=== PATIENT | male | born 1965 | race Two or more races ===

== ENCOUNTER 2021-01-09 09:51 | Day surgery (SDC) | payer OTHER | END 2021-01-09 14:05 | disposition home or self-care (01) | LOC: AMB-ENDOS 09:51 | PROVIDERS: ATTEND Surgery | DX: K57.32 Diverticulitis of large intestine without perforation or abscess without bleeding (principal); Z20.822 Contact with and (suspected) exposure to COVID-19 ==

== ENCOUNTER 2021-03-28 10:45 | Inpatient (IN) | payer OTHER ==
[~2021-03-28] VITALS: Ht 175.3 cm; Wt 63.0 kg
[2021-03-28] MEDS ORDERED: FOLIC ACID PO (13:03)
[2021-03-28] MEDS ORDERED: ATIVAN2 M1 PO (13:03)
[2021-03-28] MEDS ORDERED: PAXIL40 MG PO (13:03)
[2021-03-28] MEDS ORDERED: PREDNISONE PO (13:04)
[2021-04-04] MEDS ORDERED: FOLIC ACID1 MG (13:27)
[2021-04-04] MEDS ORDERED: MIRTAZAPINE45 MG (13:27)
[2021-04-04] MEDS ORDERED: METHOTREXA25 MG/1 M5 (13:27)
[2021-04-04] MEDS ORDERED: OLANZAPINE10 MG (13:28)
[2021-04-04] MEDS ORDERED: RESTORIL30 MG (13:28)
[2021-04-04] MEDS ORDERED: PREDNISONE 5MG PO (13:33)
[2021-04-07] MEDS ORDERED: PRILOSEC OTC20 MG PO (09:09)
[2021-04-07] MEDS ORDERED: PERCOCET 5-3251 EACH PO (09:09)
== END 2021-04-07 11:06 | disposition home or self-care (01) | DRG 334 ==
LOC: SURH 04-04 05:46 → O/R 04-04 05:46 → SURH 04-04 07:00
PROVIDERS: ADMIT Surgery; ATTEND Surgery
PROC: 0DTP4ZZ Resection of Rectum, Percutaneous Endoscopic Approach (ICD-10-PCS; principal; 2021-04-04 07:00)
DX: K57.32 Diverticulitis of large intestine without perforation or abscess without bleeding (principal); R10.32 Left lower quadrant pain; Z20.822 Contact with and (suspected) exposure to COVID-19